=== PATIENT | female | born 1995 | race Caucasian/White ===

== ENCOUNTER 2021-07-17 15:23 | Emergency (ER) | payer OTHER ==
[~2021-07-17] VITALS: Ht 154.9 cm; Wt 81.6 kg
[2021-07-17] MEDS ORDERED: TERCONAZOLE45 GM VAG (19:42)
[2021-07-17] MEDS ORDERED: CEFADROXIL1 GM PO (19:42)
[2021-07-17] MEDS ORDERED: ZITHROMAX TRI-500 MG PO (19:42)
== END 2021-07-17 20:43 | disposition home or self-care (01) ==
LOC: ER 15:23
DX: O23.42 Unspecified infection of urinary tract in pregnancy, second trimester (principal); B37.3 Candidiasis of vulva and vagina; Z3A.23 23 weeks gestation of pregnancy; Z20.822 Contact with and (suspected) exposure to COVID-19

== ENCOUNTER 2021-10-22 13:30 | Inpatient (IN) | payer OTHER ==
[~2021-10-22] VITALS: Ht 154.9 cm; Wt 94.3 kg
[~2021-10-22 13:30] MED LIST: CEFADROXIL1 GM PO; TERCONAZOLE45 GM VAG; ZITHROMAX TRI-500 MG PO
[2021-11-01] MEDS ORDERED: DIALYVITE 800-1 EACH (06:27)
[2021-11-01] MEDS ORDERED: PRENATAL CAPLE1 EAC1 (06:27)
== END 2021-11-03 11:00 | disposition home or self-care (01) | DRG 807 ==
LOC: LDR 11-01 05:56 → OB/GYN 11-01 05:56 → LDR 11-07 13:30
PROVIDERS: ADMIT Obstetrics & Gynecology; ATTEND Obstetrics & Gynecology
PROC: 10E0XZZ Delivery of Products of Conception, External Approach (ICD-10-PCS; principal; 2021-11-01)
PROC: 4A1HXCZ Monitoring of Products of Conception, Cardiac Rate, External Approach (ICD-10-PCS; 2021-11-01)
DX: O80 Encounter for full-term uncomplicated delivery (principal); Z37.0 Single live birth; Z3A.39 39 weeks gestation of pregnancy; Z20.822 Contact with and (suspected) exposure to COVID-19